=== PATIENT | female | born 1965 | race African-American/Black ===

== ENCOUNTER 2023-02-25 16:03 | Emergency (ER) | payer BC, OTHER ==
[2023-02-25 16:21] VITALS: BP 197/85; PULSE 91; RESP 18; TEMP 98.2; BMI 32.8
[2023-02-25] MEDS ORDERED: DALBAVANCIN HCL 1,500 MG in DEXTROSE 5%-WATER - 500 ML IVPB ONE (17:03)
[2023-02-25 17:45] LABS: BASO % 0.6 % (0-2.0); EOS % 1.2 % (0-4.5); HEMATOCRIT 43.7 % (32.4-45.2); HEMOGLOBIN 14.4 GM/dL (10.7-15.3); LYMPH % 34.4 % (8-40); MCHC 32.9 g/dl (32.0-36.0); MEAN CELL VOLUME 85.1 fl (80-96); MEAN PLT VOLUME 8.4 fl (7.5-11.1); MONO % 6.2 % (3.8-10.2); NEUT % 57.6 % (42.8-82.8); PLATELET COUNT 265 10^3/uL (134-434); RBC 5.13 M/mm3 (3.60-5.2); RDW 13.8 % (11.6-15.6); WHITE BLOOD COUNT 7.1 K/mm3 (4.0-10.0)
[2023-02-25 18:05] LABS: CHLORIDE 104 mmol/L (98-107); POTASSIUM 4.5 mmol/L (3.5-5.1); SODIUM 138 mmol/L (136-145)
[2023-02-25 18:07] LABS: CALCIUM 9.6 mg/dL (8.5-10.1)
[2023-02-25 18:08] LABS: ALBUMIN 3.9 g/dl (3.4-5.0); ANION GAP 5 MMOL/L (8-16); BLOOD UREA NITROGEN 10.5 mg/dL (7-18); CO2 28 mmol/L (21-32); GLUCOSE,RANDOM 333 mg/dL (74-106)
[2023-02-25 18:11] LABS: CREATININE 0.9 mg/dL (0.55-1.3); SGOT/AST 16 U/L (15-37); SGPT/ALT 26 U/L (13-61)
[2023-02-25 18:12] LABS: BILIRUBIN,TOTAL 0.3 mg/dL (0.2-1)
[2023-02-25 18:13] LABS: TOT PROT 8.1 g/dl (6.4-8.2)
[2023-02-25 18:14] LABS: ALK PHOS 82 U/L (45-117)
[2023-02-25] MEDS ORDERED: DALBAVANCIN HCL 500 MG VIAL (RESTRICTED TO ID ONLY) IVPB ONE ×2 (18:21→18:22)
[2023-02-25] MEDS ORDERED: SODIUM CHLORIDE 0.9% 1000 ML INFUS.BAG IV ONE (18:36)
[2023-02-25] MEDS ORDERED: INSULIN (NOVOLOG) ASPART 100 UNITS/ML 10ML VIAL SQ ONE (18:37)
== END 2023-02-25 20:40 | disposition home or self-care (01) ==
LOC: JER 16:03
PROC: 3E033GC Introduction of Other Therapeutic Substance into Peripheral Vein, Percutaneous Approach (ICD-10-PCS; principal; 2023-02-25)
PROC: 3E033GC Introduction of Other Therapeutic Substance into Peripheral Vein, Percutaneous Approach (ICD-10-PCS; 2023-02-25)
DX: L08.9 Local infection of the skin and subcutaneous tissue, unspecified (principal)
CPT/HCPCS: 36415; 73200-TC-RT; 80053; 85025; 86140; 99284-25; J0875